=== PATIENT | male | born 1950 | race Caucasian/White ===

== ENCOUNTER 2017-02-19 16:30 | Inpatient (IN) | payer MEDICARE, OTHER ==
[~2017-02-19] VITALS: Ht 182.9 cm; Wt 82.7 kg
[~2017-02-19 16:30] MED LIST: AMLODIPINE BESY10 MG PO; COZAAR25 MG; METOPROLOL SUC100 MG PO; SIMVASTATIN40 MG PO
[2017-02-19] MEDS ORDERED: LAMOTRIGINE25 MG PO (17:21)
[2017-02-19] MEDS ORDERED: DEXAMETHASONE2 MG PO (17:22)
[2017-02-19] MEDS ORDERED: ATORVASTATIN CA40 MG PO (17:22)
[2017-02-19] MEDS ORDERED: EMEND80 MG PO (17:24)
[2017-02-19] MEDS ORDERED: CELECOXIB200 MG PO (17:25)
[2017-02-19] MEDS ORDERED: ANTABUSE250 MG PO (17:27)
[2017-02-19] MEDS ORDERED: MINOCYCLINE HC100 MG PO (17:28)
[2017-02-19] MEDS ORDERED: [UNRECOGNIZED DRUG - OTHER] PO (17:29)
[2017-02-19] MEDS ORDERED: SPORANOX100 MG PO (17:30)
[2017-02-19] MEDS ORDERED: SERTRALINE HCL100 MG PO (17:34)
[2017-02-19] MEDS ORDERED: CAPTOPRIL100 MG PO (17:36)
[2017-02-19] MEDS ORDERED: QUETIAPINE FUMA50 MG PO (17:36)
--- NOTE | 2017-02-19 20:30 | NUR ---
PT ARRIVED TO [place] FROM ED VIA STRETCHER. PT ABLE TO SCOOT HIMSELF OVER TO BED FROM STRETCHER. IVF INFUSING. IV SITE C/D/I. VS OBTAINED. FLOOR MATS ON BOTH SIDES OF BED. BED ALARM ON. CALL RIBERA WITHIN REACH.
--- NOTE | 2017-02-19 23:13 | NUR ---
PT SLEEPING, BED ALARM ON. CALL RIBERA WITHIN REACH.
--- NOTE | 2017-02-20 00:10 | NUR ---
BLOOD DRAWN FOR SCHEDULED BMP AND SENT TO LAB.
--- NOTE | 2017-02-20 00:45 | NUR ---
BLOOD DRAWN FOR SCHEDULED BMP, SENT TO LAB.
--- NOTE | 2017-02-20 00:45 | NUR ---
PT SLEEPING, BED ALARM ON. CALL RIBERA WITHIN REACH.
--- NOTE | 2017-02-20 00:45 | NUR ---
BLOOD DRAWN FOR SCHEDULED SODIUM. SENT TO LAB
--- NOTE | 2017-02-20 02:22 | NUR ---
PT RESTING IN BED. TOILETING OFFERED. CALL RIBERA IN REACH. BED ALARM ON.
--- NOTE | 2017-02-20 03:45 | NUR ---
BLOOD DRAWN FOR SCHEDULED SODIUM LEVEL AND SENT TO LAB.
--- NOTE | 2017-02-20 04:36 | NUR ---
CALL PLACED TO DR BATES, DISCUSSED SODIUM LEVEL AT 0010 OF 129 AND 0345 OF 126. RECIEVED ORDERS TO DC IV FLUIDS AND ADMINISTER DdAVP .001MG SQ AT THIS TIME. INFORMED HIM PHARMACIST WOULD BE CALLED TO MAKE DRUG AVAILABLE. PT IS RESTING COMFORTABLY. NURSING SPACE OPERATIONS NOTIFIED FOR PHARMACIST TO BE CALLED.
--- NOTE | 2017-02-20 04:36 | NUR ---
SODIUM-126, CALL TO DR BATES AND RECIEVED ORDER TO DC IV FLUIDS AND ADMINISTER DdAVP AT THIS TIME. INFORMED HIM PHARMACY WILL BE CALLED TO PROVIDE MEDICATION FOR ADMINISTRATION. PT IS RESTING COMFORTABLY.
--- NOTE | 2017-02-20 04:39 | NUR ---
D/C IVF PER MD ORDER.
--- NOTE | 2017-02-20 05:07 | NUR ---
PT ADMITTED TO MED/SURG LAST NIGHT AROUND 2029 AFTER FALL AT HOME. PTS SPEECH SLURRED AND INCOMPREHENSIBLE. SPEECH SLURRED AT BASELINE, H/O GLIOBLASTOMA, LAST RADIATION TREATMENT WAS THURSDAY. NEW FACIAL DROOP NOTED IN ED. EQUAL STRENGTH IN ALL EXTREMETIES. GAIT UNSTEADY, 2 ASSIST TO BATHROOM. IVF D/C THIS MORNING DUE TO SHARP INCREASE IN SODIUM. SODIUM AT 0400-126. AWARE.
--- NOTE | 2017-02-20 05:50 | NUR ---
CALL PLACED TO NURSING SHIPPING COORDINATOR REQUESTING DdAVP. STATES HE WILL FOLLOWUP.
--- NOTE | 2017-02-20 06:23 | NUR ---
PT'S MOST RECENT SODIUM 126, MD ORDERED OVER TELEPHONE TO GIVE DDAVP ANYWAY.
--- NOTE | 2017-02-20 09:04 | NUR ---
BEDSIDE SWALLOW EVAL DONE WITH OT. CAN BE ADVANECD TO NECTAR THICK FLUID, AND CHOPPED DIET. PATIENT APPEARED TO DO VERY WELL WITH JELLO AND APPLE SAUCE. SHOULD HAVE SOME CUEING AND ASSISTANCE WITH EATTING. NEW ORDER FOR DIET CHANGE.
--- NOTE | 2017-02-20 10:57 | NUR ---
PT IN BED WITH DAUGHTER KERON AND BETH ASSISTING HIM BREAKFAST. FOUND HIM FACE DOWN IN THE YARD YESTERDAY, AND MENTIONED TO ME THAT WITH HIS CANCER, THEY HAVE SOME DIFFICULT DECISIONS TO MAKE. PT RESPONDED TO ME, GREETED ME, AND ALLOWED ME TO PRAY WITH THEM. I WILL CONTINUE TO FOLLOW NEEDED
--- NOTE | 2017-02-20 11:01 | HP ---
[facility] [address], [place] [address] Signed DATE OF ADMISSION: 02/19/17 PRIMARY CARE PHYSICIAN: Dr. Blood. REFERRING PHYSICIAN: Dr. Alvarez. IDENTIFICATION The patient is a 66-year-old male who has been admitted from the emergency room at [facility]. History is obtained from the patient's . REASON FOR ADMISSION: Hyponatremia with altered mental status. HISTORY OF PRESENT ILLNESS The patient is a 66-year-old male with history of recurrent glioblastoma multiforme (GBM) who was in his baseline state of health until about a week ago when he was taken off his dexamethasone in preparation for starting a new chemotherapy regimen. Subsequently, the patient developed decreased speech, confusion, decreased motor activity, and appeared to be fatigued and tired. He was noted to have difficulty walking. He fell approximately 3 times this week. He was also noted to have garbled speech at times. Because of these symptoms, his oncologist was contacted and restarted his dexamethasone 4 mg yesterday. Today, the patient wandered outside unattended. He was found approximately 5 minutes later on the ground by his mailbox. He had fallen on the sidewalk. He was snoring when his found him. He aroused easily and was brought back into the house. He was noted to have a contusion on his right forehead. Because of this fall, he was brought to the emergency room at [facility]. There was no known loss of consciousness. The states that the patient has been having difficulty using his eating utensils for the past week. He is currently on the CUSP9 protocol from [facility] [place]. He was diagnosed with his GBM in February of 2016. There have been no recent seizures. He is on Lamictal for seizure prophylaxis. He has had some recent weight loss. He has also experienced recurrent hiccups lasting hours. He has developed chronic cough related to his captopril as part of his CUSP9 protocol. In the emergency room, he appeared quite confused and somewhat weak. He was noted to have a serum sodium of 119. I was therefore contacted to admit him to the medical floor. PAST MEDICAL HISTORY Glioblastoma multiforme diagnosed in February of 2016. The patient had chemotherapy and radiation therapy. He recently had recurrence. He is currently on a CUSP9 protocol. He is followed by Dr. Farfan from Radiation Oncology and Dr. Melendez from Neuro-Oncology at [facility]. Electronically Signed By: SLIME BATES MD 02/20/17 1101 PATIENT NAME: MONIK HUTCHINS HISTORY AND PHYSICAL DATE OF : 50 PHYSICIAN: SLIME BATES MD REPORT #: [id number] REPORT IS CONFIDENTIAL AND NOT TO BE RELEASED WITHOUT AUTHORIZATION [facility] [address] [place] [id number] Signed Prostate cancer diagnosed in 2010. The patient had proton beam therapy at [facility]. Hypertension. Hypercholesterolemia. CURRENT MEDICATIONS Include amlodipine 10 mg p.o. daily, aprepitant 80 mg p.o. daily, atorvastatin 40 mg daily, Ridaura 3 mg p.o. daily, captop ril 100 mg p.o. b.i.d., Celexa 200 mg p.o. b.i.d., dexamethasone 4 mg p.o. daily, Antabuse or disulfiram 250 mg p.o. daily, itraconazole 100 mg p.o. daily, Lamictal 25 mg p.o. b.i.d., minocycline 100 mg p.o. daily, quetiapine 50 mg p.o. at bedtime, sertraline 100 mg p.o. daily, temozolomide 100 mg p.o. daily, ondansetron 8 mg tablet one 30 minutes prior to taking temozolomide, lorazepam 0.5 mg p.o. q.4h. p.r.n. for nausea and vomiting. ALLERGIES: No known drug allergies. FAMILY HISTORY: Has been reviewed and is noncontributory. SOCIAL HISTORY The patient lives at home with his . 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 He has 2 daughters who live in the area. He is currently disabled due to his brain tumor. He smoked for 1 year approximately 40 years ago. Prior to his brain tumor diagnosis, he drank 1 glass of beer or wine a day. The patient is currently full code. The is a durable power of supervisor wall mirror department for healthcare. REVIEW OF SYSTEMS Significant for some weight loss in the past month. There has been no fever or night sweats. He has had hiccups intermittently that last hours. He has not complained of any vision loss or blurry vision. There has been no chest pain or difficulty breathing. He has had a chronic dry cough secondary to captopril exposure. There has been no nausea, vomiting, or diarrhea. He has had muscle weakness. There have been no new rashes. There has been no known polyuria or polydipsia. There has been no easy bleeding or bruising. Otherwise, the 14-point review of systems is negative. PHYSICAL EXAMINATION VITAL SIGNS: Temperature is 36.8, pulse 88, respirations 18, blood pressure 131/70, oxygen saturation is 97% on room air. GENERAL: The patient is awake, but somewhat confused, talking in gibberish at times, in no acute distress. HEAD: Demonstrated an abrasion on the right frontal area. There was a subcutaneous hematoma 2 x 2 cm on the right temporal area. There is no crepitance noted. EYES: Pupils were equally round and reactive to light. There was no scleral injection or Electronically Signed By: SLIME BATES MD 02/20/17 1101 PATIENT NAME: MONIK HUTCHINS HISTORY AND PHYSICAL DATE OF : 50 PHYSICIAN: SLIME BATES MD REPORT #: [id number] REPORT IS CONFIDENTIAL AND NOT TO BE RELEASED WITHOUT AUTHORIZATION [facility] [address], [place] [address] Signed hemorrhage. Extraocular muscles appear intact. There was some horizontal nystagmus on horizontal pursuit. NOSE: No epistaxis. No rhinorrhea. MOUTH: Moist without oral lesions. Dentition was intact. NECK: No lymphadenopathy. No nuchal rigidity. No cervical tenderness. CHEST: Symmetric. Clavicles were intact. LUNGS: Clear to auscultation. HEART: Regular rate and rhythm without murmur or gallop. ABDOMEN: Quiet bowel sounds, soft, nondistended, nontender. No organomegaly. No guarding or rebound. : Deferred. EXTREMITIES: Warm distally. Capillary refill time was 2-3 seconds. There was no cyanosis or edema. BACK: Demonstrated normal curvatures with a large subcutaneous lipoma in the left back. There was no spinal tenderness. No costovertebral angle tenderness. No sacral edema. NEUROLOGIC: The patient was awake. He tried to engage in conversations and had some apraxia. He followed simple commands intermittently. He was noted to have a slight right facial droop which the josie jasso said was new. Otherwise, cranial nerves appeared intact. Tongue was midline. Strength was 5+/5 equal and symmetric in the upper and lower extremities. Babinski's were downgoing bilaterally. DIAGNOSTIC DATA CBC: White blood count was 10.5, hemoglobin 14.9 , hematocrit 42.9, platelet count 146,000. Differential, segs 92, lymphs 3, monos 3. Electrolytes: Sodium 119, potassium 4.7, chloride 87, CO2 23, BUN 29, creatinine 0.97, random glucose 119, calcium 8.9, total bilirubin 0.5, AST of 17, ALT of 20, alkalin e phosphatase 50, total protein 5.9, and albumin 3.9. Urinalysis showed a specific gravity of 1.014, pH of 5, trace blood, 0 rbcs, 2 wbcs, 1+ bacteria, 2+ hyaline cast, and was otherwise negative. His spot urine sodium was 11. Urine drug screen for drugs of abuse showed none detected. A CT scan of the brain demonstrated interval left craniotomy with hiren holes and mesh placement. There was a low density area in the left parietal white matter, which likely represents encephalomalacia from surgery or vasogenic edema. A left ventricle was noted to be slightly smaller than the right ventricle likely due to some mass effect. There was resection on the anterior aspect of the left temporal lobe. The ventricles were mildly enlarged bilaterally probably from global volume loss. Chest x-ray demonstrated no acute pathology. IMPRESSION This is a 66-year-old male with glioblastoma multiforme recurrent brain tumor who presents with a fall. The patient likely has generalized weakness from his acute hyponatremia. He appears to have new neurologic findings including a slight right facial droop which I assume is related to his glioblastoma multiforme, but possibly could be Electronically Signed By: SLIME BATES MD 02/20/17 1101 PATIENT NAME: MONIK HUTCHINS HISTORY AND PHYSICAL DATE OF : 50 PHYSICIAN: SLIME BATES MD REPORT #: [id number] REPORT IS CONFIDENTIAL AND NOT TO BE RELEASED WITHOUT AUTHORIZATION [facility] [address], [place] [address] Signed related to new metastatic disease or a stroke which has not been seen on CT scan. The patient will be seen by speech therapy in the morning to make sure that his swallow mechanism is intact. I have spoken to the Neuro-Oncology fellow at [facility] who has also spoken to Dr. Melendez. They agree that admission to the medical floor here seems reasonable to correct his hyponatremia. If the patient does not improve neurologically after correction of his hyponatremia, then can consider transfer at that time. Acute hyponatremia, possibly secondary to adrenal insufficiency versus the syndrome of inappropriate antidiuretic hormone release. The remembers that the previous serum sodium was 140 last time it was checked. This hyponatremia is likely due to stopping his dexamethasone last week, although the patient may also have had fluid overload. The patient's urine sodium is reassuring and the patient should improve with IV fluid hydration with normal saline, free water restriction, and replacement of his glucocorticoid steroids. The patient will be started on half normal saline at 100 mL an hour. He will be given stress dose steroids including 50 mg of hydrocortisone IV every 8 hours. We will follow his serum sodium every 4 hours to follow the rise in serum sodium. We will try to limit the rise of serum sodium to less than 6 mEq in the next 24 hours. If the patient's serum sodium rise is faster than that we will consider adding subcutaneous DDAVP to control the rise in serum sodium. He is certainly at risk for increased edema around his tumor or central pontine myelinolysis. The patient certainly is at risk for seizures with t his hyponatremia and therefore he will be continued on his Lamictal at this time. History of essential hypertension, currently stable. History of hypercholesterolemia on atorvastatin, currently stable. The patient is at high risk due to his recurrent brain tumor, hyponatremia, and adrenal insufficiency. Slime Bates MD MM/Modl /[id number] cc: Electronically Signed By: SLIME BATES MD 02/20/17 1101 PATIENT NAME: MONIK HUTCHINS HISTORY AND PHYSICAL DATE OF : 50 PHYSICIAN: SLIME BATES MD REPORT #: [id number] REPORT IS CONFIDENTIAL AND NOT TO BE RELEASED WITHOUT AUTHORIZATION [facility] [address] [facility] [place] [address] Signed MD Jovanni Warner MD OKDAVID MELENDEZ [facility] NEURO-ONCOLOGY Electronically Signed By: SLIME BATES MD 02/20/17 1101 PATIENT NAME: MONIK HUTCHINS HISTORY AND PHYSICAL DATE OF : 50 PHYSICIAN: SLIME BATES MD REPORT #: [id number] REPORT IS CONFIDENTIAL AND NOT TO BE RELEASED WITHOUT AUTHORIZATION
[2017-02-20] MEDS ORDERED: TEMODAR100 MG PO (12:36)
--- NOTE | 2017-02-20 12:45 | NUR ---
PATIENT TO MRI. FAMILY IN ROOM. PATIENT VERBALIZED UNDERSTANDING OF SCAN. APPEARS TO BE SPEAKING BETTER, SAYING MORE PHRASES BUT STILL SLURS AND AND JUMBLES SENTENCES WHEN TRYING TO HAVE MORE IN DEPTH CONVERSATION.
--- NOTE | 2017-02-20 12:45 | NUR ---
MED REC COMPLETE
--- NOTE | 2017-02-20 15:05 | EKG ---
[facility] [address] [facility] [place], [place] [address] Signed Normal sinus rhythm Normal ECG No previous ECGs available Confirmed by KEIKO CAMPOS MD ([id number]) on 02/20/2017 3:05:33 PM Electronically Signed By: KEIKO CAMPOS MD 02/20/17 1505 PATIENT NAME: MONIK HUTCHINS Electrocardiogram DATE OF : 50 PHYSICIAN: KEIKO CAMPOS MD REPORT #: [id number] REPORT IS CONFIDENTIAL AND NOT TO BE RELEASED WITHOUT AUTHORIZATION
--- NOTE | 2017-02-20 16:00 | NUR ---
ROUNDED WITH HOSPITALIST. DISCUSSED MRI RESULTS, NEGATIVE FOR STROKE. TUMOR NOTED INCREASED MASS, FAMILY AND PATIENT ALREADY AWARE OF GROWTH. REPORTED PATIENT HAD RADIATION LAST WEEK AND WAS SUPPOSE TO HAVE RADIATION TODAY. CHEMO PERCAUTIONS INITIATED. DISCUSSED POC. PATIENT APPEARS TO BE FORMING SENTENCES BETTER, CONTINUES TO JUMBLE WORDS. INSISTS ON FEEDING SELF, DECREASED MOTOR SKILLS. VS STABLE. LUNG SOUNDS CLEAR. HR REGULAR. PATIENT REPORTS NO PAIN OR DISCOMFORT.
--- NOTE | 2017-02-20 18:37 | NUR ---
PATIENT HAD MRI TODAY, NEGATIVE FOR STROKE. SPEECH IMPROVED. ADVANCED TO DYSPHAGIA DIET, AND NECTAR THICK FLUIDS, HAS BEEN DOING WELL WITH DIET. NO COMPLAINTS OF PAIN OR DISCOMFORT. FAMILY AT BEDSIDE.
--- NOTE | 2017-02-20 19:44 | NUR ---
PT RESTING IN BED. FAMILY AT BEDSIDE. ENCOURAGED PT TO USE CALL RIBERA WHICH IS IN REACH. PT/FAMILY DENIES NEEDS AT THIS TIME. RECIEVED REPORT FROM DAY SHIFT NURSE.
--- NOTE | 2017-02-20 21:00 | NUR ---
ASSISTED PT WITH BRUSHING HIS TEETH. GOWN CHANGED. DRESSING ON R WRIST CHANGED. PT RESTING COMFORTABLY. FAMILY AND PATIENT DENY NEEDS AT THIS TIME. BED ALARM ON, CALL RIBERA WITHIN REACH.
--- NOTE | 2017-02-20 22:47 | NUR ---
PT SLEEPING, EVIDENCE BY SNORING. BED ALARM ON, CALL RIBERA WITHIN REACH.
--- NOTE | 2017-02-21 00:05 | NUR ---
CALLED LAB TO REMIND THEM TO DRAW SODIUM LEVEL AT 0000 ON 02/21/17. OPERATIONS TEAM LEADER STATES HE IS WAITING FOR THE ORDER TO PRINT.
--- NOTE | 2017-02-21 00:11 | NUR ---
LAB IN TO DRAW SODIUM LEVEL.
--- NOTE | 2017-02-21 01:46 | NUR ---
PT SLEEPING ON L SIDE. REPOSITIONS INDEPENDENTLY. BED ALARM ON. CALL RIBERA IN REACH.
--- NOTE | 2017-02-21 02:49 | NUR ---
PT SLEEPING. CALL RIBERA IN REACH. BED ALARM ON.
--- NOTE | 2017-02-21 04:13 | NUR ---
LAB IN TO DRAW SODIUM.
--- NOTE | 2017-02-21 04:26 | NUR ---
OFFERED PT TOILETING. PT REFUSED.
--- NOTE | 2017-02-21 06:18 | NUR ---
PT HAD ONE EPISODE ON INCONT LAST NIGHT. BLADDER SCANNED PT AND FOUND 940CC IN BLADDER. CALLED MD, OBTAINED ORDER TO STRAIGHT CATH.
--- NOTE | 2017-02-21 06:36 | NUR ---
PT SLEPT ALL NIGHT. STAYED UNTIL 2100 AND WENT HOME. PT HAS MOMENTS OF CLARITY, ABLE TO ANSWER SIMPLE YES/NO QUESTIONS. NEUROLOGIC FUNCTION SEEMS TO BE IMPROVING. PT HAD ONE EPISODE OF INCONT. LAST NIGHT. BLADDER SCANNED THIS AM TO FIND 940CC IN BLADDER. OBTAINED ORDER FROM TO STRAIGHT CATH. 600CC DARK YELLOW URINE OUT. PT ON CHEMO DRUG THAT IS ADMINISTERED ONCE DAILY. TAKE PRECAUTION WHEN HANDLING URINE. NO LADIES IN ROOM!
--- NOTE | 2017-02-21 09:00 | NUR ---
PATIENT SITTING UP IN BED EATING BREAKFAST, TOLERATING WELL. FEEDING SELF. ADMINISTERED MORNING MEDICATIONS WITH THICKENED JUICE, SWALLOWS WELL. NO COMPLAINTS OF PAIN OR DISCOMFORT. FULL BODY ASSESMENT DONE. DISCUSSED POC, PATIENT AGREED. PATIENT NOW ATTEMPTING TO USE URINAL.
--- NOTE | 2017-02-21 11:00 | NUR ---
PATIENT UP AMBULATING IN HALLS, TOLERATED 1 LAP. THEN TO BATHROOM WITH URINAL, UNABLE TO VOID. BLADDER SCAN [address] RIZVI, NEW ORDER FOR NUNEZ CATHETER. PLAN IS FOR PATIENT TO DISCHARGE HOME WITH NUNEZ AND FOLLOW UP UP WITH NEUROLOGIST.
--- NOTE | 2017-02-21 14:00 | NUR ---
NUNEZ INSERTED @1130, DRAINING WELL. DARK CONCENTRATED URINE WITH SEDIMENT. 600 ML OUT. PATIENT DIET ADVANCED TO SOFT REGULAR AND THIN LIQUIDS. TOLERATING WELL, EATING MORE 95%. PATIENT NOW RESTING, DISCUSSED POC WITH PATIENT AND FAMILY.
--- NOTE | 2017-02-21 18:03 | NUR ---
PATIENT UP AMBULATING IN HALLS TODAY, 2PERSON STBY WITH GAITBELT WAS PROVIDED, PATIENT UNBALANCED AT TIMES. MOTOR SKILLS IMPROVED. DIET ADVANCED TO SOFT REGULAR, PATIENT APPEARS TO BETTER WITH FINGER FOODS SUCH SANDWHICHES, PERCENTAGE OF FOOD EATEN HAS IMPROVED. FLUID RESTRICITON FOLLOWED CLOSELY. PATIENT UNABLE TO VOID THIS MORNING, BLADDER SCANNED AFTER ATTEMPTING TO VOID, DR. RIZVI ORDERED NUNEZ. PLAN TO DISCHARGE WITH NUNEZ AND FOLLOW UP WITH UROLOGY. PT-OT ORDERED FOR TOMORROW, POSSIBLE DISCHARGE IN NEXT 1-2 DAYS. NO BM TODAY, SENNA INITIATED PER FAMILY REQUEST. VS STABLE.
--- NOTE | 2017-02-21 19:19 | NUR ---
RECIEVED REPORT FROM DAY SHIFT. PT IN BED WITH FAMILY AT BEDSIDE. CALL RIBERA IN REACH.
--- NOTE | 2017-02-21 19:30 | NUR ---
PATIENT'S DAUGHTER HELPED ME WALK HIM TO THE SHOWER CHAIR.
--- NOTE | 2017-02-21 20:30 | NUR ---
ASSISTED PT TO BED FROM CHAIR WITH AND DAUGHTER. PT IN BED WITH BED ALARM INITIATED. CALL RIBERA IN REACH.
--- NOTE | 2017-02-21 23:29 | NUR ---
PT SLEEPING EVIDENCE BY SNORING. BED ALARM ON. CALL RIBERA IN REACH.
--- NOTE | 2017-02-22 00:45 | NUR ---
PT SLEEPING. BED ALARM ON. CALL RIBERA IN REACH.
--- NOTE | 2017-02-22 02:31 | NUR ---
PT SLEEPING. CALL RIBERA IN REACH. BED ALARM ON.
--- NOTE | 2017-02-22 05:38 | NUR ---
PT'S ABILITY TO COMMUNICATE HAS IMPROVED FROM LAST NIGHT. PT ABLE TO HOLD SIMPLE CONVERSATIONS WITH FAMILY. PT ABLE TO MAKE DECISIONS AND FOLLOW COMMANDS MOST OF THE TIME. PT'S GAIT REMAINS UNSTEADY, 2 ASSIST NEEDED. THERE IS ONE MORE FULL DAY OF HIS HOME MEDICATION IN THE TOWER. PT SLEPT ALL NIGHT. VS REMAIN STABLE. NO SODIUM DRAWS SCHEDULED.
--- NOTE | 2017-02-22 09:54 | NUR ---
i went in to do his morning vital signs, he hadnt ate much breakfast yet, and physical therapy was working with him after i left.
--- NOTE | 2017-02-22 15:20 | NUR ---
DR. RIZVI ROUNDED ON PATIENT, NEW ORDERS TO REMOVE NUNEZ CATHETER AND PROVIDE BLADDER TRAINING. PATIENT AND FAMILY AGREE WITH PLAN OF CARE. ATTEMPTED TO PROVIDE IS TO PATIENT TO ENCOURAGE DEEP BREATHING, PATIENT CONTINUES TO BLOW INTO INSTRUMENT, CONTACTED RT FOR OCCAPELLA TO USE, DR. RIZVI VERBALIZED OKAY FOR POC. PATIENT'S REPORTS CONCERNS OF PRODUCTIVE COUGH, LUNG SOUNDS COURSE THROUGHOUT, NO WHEEZING. URINE ADEQUATE LAST 4 HOURS, 200 ML OF URINE. ENCOURAGED PATIENT TO DRINK MORE, TO MEET FLUID RESTRICTION. URINE APPEARS DARK AND CONCENTRATED.
--- NOTE | 2017-02-22 19:31 | NUR ---
RECIEVED REPORT FROM DAY SHIFT. PT RESTING IN ROOM WITH FAMILY. ASSISTED PT AMBULATING TO BATHROOM. PT HAD A BM, STILL NO VOID. PT AND FAMILY DENY NEEDS AT THIS TIME.
--- NOTE | 2017-02-22 21:15 | NUR ---
PRINCIPAL SOFTWARE ARCHITECT BLADDER SCANNED PT-FOUND 240CC IN BLADDER. PT STILL UNABLE TO VOID.
--- NOTE | 2017-02-22 22:44 | NUR ---
PT SLEEPING. BED ALARM ON. CALL RIBERA WITHIN REACH.
--- NOTE | 2017-02-22 22:47 | NUR ---
PT SLEEPING. BED ALARM ON. CALL RIBERA IN REACH.
--- NOTE | 2017-02-22 23:47 | NUR ---
ASSISITED PT TO BATHROOM TO VOID. PT WAS UNABLE TO VOID BUT HAD ANOTHER LARGE FORMED BM. BLADDER SCANNED PT AND FOUND ALMOST 400CC IN BLADDER. STRAIGHT CATHETERIZED PT WITH LIDOCAINE, URINE OUTPUT OF 350CC. PT IN BED, CALL LIGHT IN REACH. BED ALARM ON.
--- NOTE | 2017-02-23 01:28 | NUR ---
PT SLEEPING. BED ALARM ON. CALL RIBERA IN REACH.
--- NOTE | 2017-02-23 03:45 | NUR ---
PT SLEEPING. CALL RIBERA IN REACH. BED ALARM ON.
--- NOTE | 2017-02-23 04:57 | NUR ---
PT SLEEPING. BED ALARM ON. CALL RIBERA IN REACH.
--- NOTE | 2017-02-23 06:00 | NUR ---
INFORMED DR. CAMPOS OF PT'S INABILITY TO VOID. OBTAINED ORDER TO INSERT NUNEZ CATHETER. LIDOCAINE USED WITH INSERTION.
--- NOTE | 2017-02-23 06:28 | NUR ---
PT SLEPT ALL NIGHT. PT STILL UNABLE TO VOID SINCE CATHETER PULLED YESTERDAY AT 1500. NEW CATHETER INSERTED THIS MORNING WITH ADEQUATE URINE OUTPUT. PLAN IS TO BE D/C HOME AFTER A FEW MORE DAYS OF PHYSICAL THERAPY.
--- NOTE | 2017-02-23 08:27 | NUR ---
[facility], ONE PERSON STANDBY ASSIST. PATIENT GIVEN WARM BLANKET. CALL LIGHT IN REACH. PATIENT DENIES PAIN, GIVES SIMPLE ANSWERS. YES/NO. APPEARS ORIENTED AT THIS TIME.
--- NOTE | 2017-02-23 09:43 | NUR ---
MD IN TO ROUND, PATIENT'S AND DAUGHTER AT BEDSIDE. MD DISCUSSES PLAN OF CARE AND ANTICIAPTED DC TOMORROW WITH HOME HEALTH TO FOLLOW UP. PATIENT SEEMS AND FAMILY AGREE TO THIS.
--- NOTE | 2017-02-23 11:54 | NUR ---
Multiple family members in to see patient who is sitting up in his chair at this time.
--- NOTE | 2017-02-23 12:05 | NUR ---
PATIENT SITTING UP IN CHAIR EATING LUNCH.
--- NOTE | 2017-02-23 12:30 | NUR ---
TALKED WITH PT REGARDING HER WISHES AND DESIRES FOR HIS DC. SHE STATES THAT SHE WOULD LIKE MUCH HELP SHE CAN GET WITH HIM TO MAKE SURE HE GETS THE BEST CARE POSSIBLE.
--- NOTE | 2017-02-23 14:44 | NUR ---
PT SITTING IN CHAIR, WITH TV ON. HIS BETH HAD JUST LEFT. HIS RIGHT EYE EDEMA IS DOWN AND PUPIL IS NOT QUITE RED. VERY DIFFICULT TO UNDERSTAND, BUT HE SEEMS TO KNOW WHAT YOU ARE SAYING. I ASKED HIM IF I COULD PRAY FOR HIM, HE KNODDED AND SAID "YES". PT SHOOK MY HAND-WILL CONTINUE TO FOLLOW
--- NOTE | 2017-02-23 16:39 | NUR ---
given education on reich cath care. Patient denies needs at this time.
--- NOTE | 2017-02-23 18:09 | NUR ---
PATIENT HAS BEEN UP TO THE CHAIR FOR MOST OF THE DAY. PATIENT HAS BEEN WORKING WITH PT/OT/RT. FAMILY AT BEDSIDE MOST OF THE DAY. PATIENT TOLERATING REGULAR DIET. NO SWALLOWING PROBLEMS, HOWEVER APPETITE IS POOR. PATIENT IS STEADY ON HIS FEET, ONE PERSON STANDBY ASSIST WITH WALKER. PATIENT WILL BE GOING HOME WITH A NUNEZ, STARTED TEACHING WITH PATIENT'S FAMILY. PATIENT ABLE TO ANSWER YES/NO QUESTIONS, HOWEVER HAS EXPRESSIVE APHASIA WHEN ASKED A QUESTION. FAMILY STATES PATIENT IS MUCH BETTER AFTER BEING ON HIS STEROIDS. FAMILY HAPPY TO BE TAKING PATIENT HOME TOMORROW.
--- NOTE | 2017-02-23 19:06 | NUR ---
RECIEVED REPORT FROM DAY SHIFT. PT RESTING IN CHAIR, SPOUSE IN ROOM. RN ASSISTING PT TO BED. PT AND SPOUSE DENY NEEDS AT THIS TIME. ENCOURAGED TO USE CALL RIBERA.
--- NOTE | 2017-02-23 21:19 | NUR ---
PT RESTING IN BED. BREAST SURGEON IN TO OBTAIN VS. PT DENIES NEEDS. CALL RIBERA IN REACH.
--- NOTE | 2017-02-23 21:31 | NUR ---
RN NOTIFIED OF PT LOW URINE OUTPUT
--- NOTE | 2017-02-23 22:37 | NUR ---
PT SLEEPING. CALL RIBERA IN REACH. BED ALARM ON.
--- NOTE | 2017-02-24 | NUR ---
PT SLEEPING. CALL RIBERA IN REACH. BED ALARM ON.
--- NOTE | 2017-02-24 02:13 | NUR ---
PT SLEEPING. REPOSITIONED NUNEZ FOR BETTER FLOW. CALL RIBERA IN REACH. BED ALARM ON.
--- NOTE | 2017-02-24 03:50 | NUR ---
PT SLEEPING. CALL RIBERA IN REACH. BED ALARM ON.
--- NOTE | 2017-02-24 05:17 | NUR ---
PT SLEEPING. EMPTIED NUNEZ CATHETER. CALL RIBERA IN REACH. BED ALARM ON.
--- NOTE | 2017-02-24 05:20 | NUR ---
PT HAD AN UNEVENTFUL NIGHT. SLEPT ALL NIGHT. NUNEZ HAD ADEQUATE URINE OUTPUT. VS STABLE. NO CHANGES IN NEUROLOGICAL STATUS. PT ABLE TO ANSWER SIMPLE YES/NO QUESTIONS. ABLE TO MAKE DECISIONS AND FOLLOW COMMANDS. SBA WITH WALKER. PLAN IS FOR D/C HOME TODAY WITH NUNEZ. FAMILY NEEDS EDUCATION. PT WILL F/U WITH UROLOGY.
--- NOTE | 2017-02-24 08:15 | NUR ---
this RN assists patient with shower, then patient up to chair for breakfast. patient steady on his feet, follows commands. uses fww.
--- NOTE | 2017-02-24 08:43 | NUR ---
OT in to work with patient. Patient sitting up in chair.
--- NOTE | 2017-02-24 09:20 | NUR ---
Patient eats 100% of breakfast. Resting in chair with eyes closed.
--- NOTE | 2017-02-24 10:35 | NUR ---
Family at bedside. Patient continues to rest in chair in no distress.
--- NOTE | 2017-02-24 10:43 | NUR ---
PT SHOWERED AND IS NOW SITTING UP IN CHAIR WITH CALL LIGHT IN REACH. PT DID NOT NEED ANYTHING AT THE MOMENT
--- NOTE | 2017-02-24 11:11 | NUR ---
PHYSICAL THERAPY IN TO WORK WITH PATIENT
[2017-02-24] MEDS ORDERED: MIRALAX17 GM PO (11:58)
[2017-02-24] MEDS ORDERED: DEXAMETHASONE2 MG PO (11:59)
--- NOTE | 2017-02-24 12:11 | NUR ---
PT SITTING IN CHAIR, SIPPING SOME JUICE. HIS DAUGHTER KERON AND CONOR PRESENT. DISCUSSION ABUT DC FOR PT TODAY. FAMILY PREPARING FOR HOME CARE. EMOTIONS FLOWED SHE EXPRESSED THAT HER DAUGHTER WOULD NOT RETURN BACK TO [employer] AND INSTEAD HELP WITH HER DAD. THE REALITY OF HIS CONDITION IS TAKING IT'S TOLL. WILL STAY CLOSE.
--- NOTE | 2017-02-24 12:27 | NUR ---
Pharmacy in to talk over medications with patient and family.
[2017-02-24] MEDS ORDERED: AMLODIPINE BESY10 MG PO (12:31)
--- NOTE | 2017-02-24 15:43 | NUR ---
FAXED CHART NOTES INCLUDING FACESHEET, ER NOTES, H AND P, PROG NOTES, DC SUMMARY, MEDS, IMAGING, LAB, PT, OT, ST EVALS AND NOTES TO [facility], I ALSO CALLED AND SPOKE WITH KASIA IN REGARDING THIS.
== END 2017-02-24 12:50 | disposition home or self-care (01) | DRG 641 ==
LOC: ED 16:30 → MS 16:31
PROVIDERS: ADMIT Pediatrics Pediatric Critical Care Medicine
DX: E87.1 Hypo-osmolality and hyponatremia (principal); E27.3 Drug-induced adrenocortical insufficiency; C79.31 Secondary malignant neoplasm of brain; G40.802 Other epilepsy, not intractable, without status epilepticus; T38.0X5A Adverse effect of glucocorticoids and synthetic analogues, initial encounter; I10 Essential (primary) hypertension; R33.9 Retention of urine, unspecified; R13.11 Dysphagia, oral phase; Z85.46 Personal history of malignant neoplasm of prostate
CPT/HCPCS: 36415; 51701; 70450; 70553; 71010; 80048; 80053; 81001; 84295; 84300; 84484; 85025; 92507; 92526; 92610; 93005; 93010; 94668; 94760; 96361; 96374; 97110; 97162; 97165; 97530; 99285; A9579; G0480; J1720; J2597; J7030

== ENCOUNTER 2017-02-28 08:58 | Emergency (ER) | payer MEDICARE, OTHER ==
[~2017-02-28] VITALS: Ht 182.9 cm; Wt 81.7 kg
[~2017-02-28 08:58] MED LIST changes: +ANTABUSE250 MG PO; +ATORVASTATIN CA40 MG PO; +CAPTOPRIL100 MG PO; +CELECOXIB200 MG PO; +DEXAMETHASONE2 MG PO; +EMEND80 MG PO; +LAMOTRIGINE25 MG PO; +MINOCYCLINE HC100 MG PO; +MIRALAX17 GM PO; +QUETIAPINE FUMA50 MG PO; +SERTRALINE HCL100 MG PO; +SPORANOX100 MG PO; +TEMODAR100 MG PO; +[UNRECOGNIZED DRUG - OTHER] PO
[2017-02-28] MEDS ORDERED: DEXAMETHASONE1 MG PO (11:34)
--- NOTE | 2017-02-28 21:45 | EKG ---
[facility] [address] [place], [place] [address] Signed Normal sinus rhythm Normal ECG No previous ECGs available Confirmed by NATHALY PUTNAM MD ([id number] on 02/28/2017 9:45:12 PM Electronically Signed By: NATHALY PUTNAM MD 02/28/17 2145 PATIENT NAME: MONIK HUTCHINS Electrocardiogram DATE OF : 50 PHYSICIAN: NATHALY PUTNAM MD REPORT #: [id number] REPORT IS CONFIDENTIAL AND NOT TO BE RELEASED WITHOUT AUTHORIZATION
== END 2017-02-28 11:46 | disposition home or self-care (01) ==
LOC: ED 08:58
DX: R53.1 Weakness (principal); R41.0 Disorientation, unspecified; Z85.841 Personal history of malignant neoplasm of brain; Z85.46 Personal history of malignant neoplasm of prostate; Z79.52 Long term (current) use of systemic steroids; Z79.899 Other long term (current) drug therapy
CPT/HCPCS: 70450; 71010; 80053; 81001; 84484; 85025; 87077; 87088; 87186; 93005; 93010; 96360; 99284; J7030